=== PATIENT | male | born 1940 | race Caucasian/White ===

== ENCOUNTER 2017-11-16 15:53 | Emergency (ER) | payer MEDICARE ==
[2016-06-16 10:31] VITALS: BMI 25.1
[~2017-11-16 15:53] MED LIST: AVALIDE 150-12.1 TA1 PO; AVAPRO300 MG PO; BAYER CHEWABLE81 MG PO; CARDIZEM CD120 MG PO; PLAVIX75 MG PO; PRAVACHOL40 MG PO; PREDNISONE5 MG PO; PROTONIX40 MG PO
[2017-11-16 18:30] LABS: BASOPHILS 0.2 % (0-2); EOSINOPHILS 0.6 % (0-7); HEMATOCRIT 41.8 % (42.0-54.0); HEMOGLOBIN 14.9 g/dL (13.5-17.5); IMMATURE GRANULOCYTES 0.3 % (0-5); LYMPHOCYTES 10.5 % (15-50); MCH 34.6 pg (26.0-34.0); MCHC 35.6 g/dL (31.0-37.0); MEAN PLATELET VOLUME 10.6 fL (7.4-10.4); MONOCYTES 10.3 % (2-11); NEUTROPHILS 78.1 % (40-80); PLATELET COUNT 186 10x3/uL (130-400); RBC 4.31 10x6/uL (4.20-6.10); RDW 12.2 % (11.5-14.5); WBC 10.5 10x3/uL (4.8-10.8)
[2017-11-16 19:53] LABS: ALBUMIN 4.2 g/dL (3.4-5.0); ALKALINE PHOSPHATASE 45 U/L (46-116); ALT (SGPT) 25 U/L (10-68); BILIRUBIN - TOTAL 1.06 mg/dL (0.2-1.3); CALC OSMOLALITY 278 mosm/kg (275-300); CALCIUM 9.9 mg/dL (8.5-10.1); CHLORIDE - SERUM 99 mmol/L (98-107); CREATININE - SERUM 0.8 mg/dL (0.6-1.3); GLUCOSE 96 mg/dL (74-106); POTASSIUM - SERUM 4.2 mmol/L (3.5-5.1); PROTEIN - SERUM 7.5 g/dL (6.4-8.2); SODIUM 139 mmol/L (136-145); UREA NITROGEN 16 mg/dL (7-18); eGFR NON AFRICAN AMERICAN > 90 mL/min (90-120)
== END 2017-11-16 20:09 | disposition home or self-care (01) ==
LOC: D.ER 15:53
PROVIDERS: Physician Assistant Medical
DX: R11.10 Vomiting, unspecified (principal); I10 Essential (primary) hypertension

== ENCOUNTER → 2018-08-25 10:49 | Outpatient (CLI) | payer MEDICARE, OTHER ==
[2016-06-16 10:31] VITALS: BMI 25.1
== END | disposition home or self-care (01) ==
LOC: D.US 10:49
DX: N50.89 Other specified disorders of the male genital organs (principal)